=== PATIENT | female | born 1990 | race Native Hawaiian/Other Pacific Islander ===

== ENCOUNTER 2024-05-06 06:58 | Day surgery (SDC) | payer OTHER, SELFPAY ==
[2024-05-06] VITALS (16 sets, daily range): BP systolic 98–134; BP diastolic 50–105; PULSE 62–82; RESP 14–20; TEMP 36.1–36.7; O2SAT 92–100; BMI 33.5
--- OUTSIDE RECORDS SUMMARY | 2024-05-06 07:08 | XMS_ITS | Clinical Summary ---
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 09/11/2020 2:18 PM CDT [facility] INTERPRETATION/ RESULT NEGATIVE FOR INTRAEPITHELIAL LESION OR MALIGNANCY (NIL) (none) 09/11/2020 2:18 PM CDT [facility] NISM(S) Shift in karis suggestive of bacterial vaginosis 09/11/2020 2:18 PM CDT [facility] SPECIMEN ADEQUACY Satisfactory for evaluation No endocervical component seen 09/11/2020 2:18 PM CDT [facility] HPV REQUEST HPV and PAP 09/11/2020 2:18 PM CDT [facility] Last Pap Result First Pap/Unknown 2:18 PM CDT [facility] [place] Bx Done Today No 09/11/2020 2:18 PM CDT [facility] Additional Information 09/11/2020 2:18 PM CDT [facility] Comment: Interpreted at [facility] - [address], [place] [address] Automated Review Successful 09/11/2020 2:18 PM CDT [facility] Comment:Specimen processed s uccessfully by automated racecar driver device, ThinPrep Imaging System, [employer] ANCILLARY TESTING SHOE SHANKER HPV Ordered, Please see separate report 09/11/2020 2:18 PM CDT [facility] Note The pap test is a screening technique, not a diagnostic procedure. It is used primarily to screen for squamous cancers and precursor lesions. Published studies have shown that it is subject to both false negative and false positive results. The pap test should not be used as the sole means to diagnose or exclude pre-malignant and malignant lesions. 09/11/2020 2:18 PM CDT [facility] Other (Cervical) 08/29/2020 4:04 PM CDT 08/30/2020 10:01 AM CDT us Yokasta Donald NP PATHOLOGY/CYTOLOGY Final Resu lt [facility] [address] [place] [address], [place] from Last 3 Months or Most Recently Relevant to Health Maintenance Insurance [facility] [id number], [place] [id number] [address], [place] [id number] [address], [place] [id number] [address], [place] [id number] [address] [place] [address] [id number] [id number] [place] [address] [id number] [id number] [place] [phone] (Home) ATTN: NENA TALLEY [address] [id number] * Guarantor: [employer] [facility] Account Type Relation to Patient Date of Phone Billing Address [facility]ojciech Employer [address] [place] [address] [id number] [place] [id number] Advance Directives * Full Code (Latest Code Status on File) Date Activated Date Inactivated Comments 12/16/2022 7:52 PM 12/19/2022 4:14 PM Question Answer Comments Code Status Discussion: Reviewed Preferences * Full Code Date Activated Date Inactivated Comments 04/04/2021 8:06 AM 04/04/2021 12:29 PM Question Answer Comments Code Status Discussion: Discussed * Full Code Date Activated Date Inactivated Comments 09/12/2020 11:33 AM 09/12/2020 6:31 PM Question Answer Comments Code Status Discussion: Discussed Care Teams Lath Tier Relationship Specialty Start Date End Date Pcp, No . PCP - General 05/30/22 Pcp, No . 04/30/11
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
[2024-05-06 07:35] LABS: Ur HCG Qualitative* Negative (Negative)
[2024-05-06] MEDS: SODIUM CHLORIDE 0.9 % (FLUSH) 10 ML SYRINGE IVF (07:50)
[2024-05-06] MEDS: 0.9 % SODIUM CHLORIDE 500 ML 500 ML IV ×2 (07:50→10:53)
[2024-05-06] MEDS: fentaNYL 100 MCG/2 ML inj IVP (08:28)
[2024-05-06] MEDS: MIDAZOLAM HCL 1 MG/ML inj IVP (08:28)
--- NOTE | 2024-05-06 08:29 | SUR.PREOP ---
TIME?OUT:?0828 PT/RN/MDA?VERIFICATION?OF?SURGICAL?SITE-LEFT LEG,?PROCEDURE,?NERVE BLOCK, AND?CONSENT OBTAINED?PRIOR?TO?INVASIVE?PROCEDURE.
--- NOTE | 2024-05-06 08:40 | SUR.PREOP ---
Pt got anxious, lightheaded and felt faint after nerve block done by ALVARO. Pt with nausea and dry heaves, skin pale. Support given by RN's. Pt feeling better after a few minutes.
[2024-05-06] MEDS: CEFAZOLIN 2 GM INJ IVP (08:50)
--- NOTE | 2024-05-06 09:30 | W.PM.NB ---
Nerve Block Nerve Block Time Seen by Provider: 08:30 Date Seen: 05/06/24 Type of block requested by surgeon for post-operative analgesia: popliteal Side: left Time out performed: Yes Verification of patient name: Yes Verification of date of : Yes Site marking: site marked Name of person performing procedure: Cyril Continuous monitoring Was continuous monitoring of O2 sat, B/P, monitor tech, recorded every 15 minutes?: Yes Procedure Checklist: sterile prep, needles and gloves Ultrasound guided. Images saved: Yes Medications given in 5ml increments after negative aspiration: Marcaine %: 0.5 mL: 20 Patient tolerated procedure well: Yes Additional comments: Needle noted adjacent to nerve Block Charges Block Charge (with Pro Fee): Sciatic Nerve Use of Ultrasound Machine for Block: Yes- US Guidance/pain block
--- NOTE | 2024-05-06 09:31 | W.ANESCHARGE ---
Anesthesia Charges Start Date/Time Anesthesia Start Date: 05/06/24 Anesthesia Start Time: 08:39 Stop Date/Time Anesthesia Stop Date: 05/06/24 Anesthesia Stop Time: 10:45 Coding CPT Codes CPT Codes: ANESTH LOWER LEG BONE SURG - 82463 ([id number]) P2 - PATIENT W/MILD SYST DISEASE, QK - FITNESS WORKER 2-4 CNCRNT ANES PROC, QX - HEATING AND VENTILATING WORKER SVC W/ MD MED DIRECTION
--- NOTE | 2024-05-06 10:32 | W.ANESCHARGE ---
Anesthesia Charges Start Date/Time Anesthesia Start Date: 05/06/24 Anesthesia Start Time: 08:39 Stop Date/Time Anesthesia Stop Date: 05/06/24 Anesthesia Stop Time: 10:45 Coding CPT Codes CPT Codes: ANESTH LOWER LEG BONE SURG - 82950 ([id number]) P2 - PATIENT W/MILD SYST DISEASE, QK - PERSONNEL REPRESENTATIVE 2-4 CNCRNT ANES PROC, QX - DISTRIBUTION OPERATION SUPERVISOR SVC W/ MD MED DIRECTION
[2024-05-06] MEDS: BUPIVACAINE 0.25% 30 ML INJECTION (10:35)
--- NOTE | 2024-05-06 10:44 | SUR.OPER ---
BONE STIMULATOR PLACED ON THE PATIENT AND STARTED BY DR. MOISE.
[2024-05-06] MEDS: hydrOXYzine pamoate 25 MG CAPSULE PO (11:07)
--- NOTE | 2024-05-06 11:56 | SUR.PHASEII ---
Pt felt anxious and restless when first arrived to [facility] postop. Up to commode, had BM. Calming patch applied to gown, cool washcloth to forehead, reassurance given by RN. Pt feeling better now after trying to rest for a while. Continue to monitor.
--- NOTE | 2024-05-06 13:19 | W.PM.PODPROC ---
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 CT scan revealed no bony bridging and complete nonunion. She is to proceed with operative care. Reviewed the procedure, recovery, expectations potential complications. These include but are not limited to: Poor wound healing, infection, continued nonunion, hardware irritation or failure, nerve injury, deep venous thrombosis, pulmonary embolism, Complex regional pain syndrome,possible . she understands risks and a consent was obtained. Site marked. Procedure Description: patient had a preoperative popliteal block by Anesthesia. Patient brought in the operating room placed supine position on operating table. She was placed under general anesthesia. She was positioned appropriately. She was prepped and draped in a sterile fashion. Standard time-out protocol followed. Left limb was exsanguinated and the tourniquet inflated. Linear incision was made over the lateral distal fibula. Incision was carried down through skin and subcutaneous tissue. Transverse incision was made through the periosteum at the level of the nonunion. Periosteum was reflected away from the nonunion site. The nonunion was then debrided with a rongeur, dental pick, curette. the medial cartilage was soft intact. Once the nonunion fragments were multiple we gave no history of saline. The inferior and superior fracture ends were then drilled with a 2.0 mm drilled and fenestrated with a dental pick and fish-scaled with a osteotome. Jamshidi trochar was then introduced into the lateral calcaneal body. the tourniquet was released and 5 mL of bone marrow aspirate was obtained. Aspirate mixed with additional bone graft into a excellent putty. This was then applied to the nonunion site. A fibular hook plate was then applied and tamped into place. A [id number] reduction forceps was then used to advance the plate and fracture compressing the nonunion site. 3.5 mm nonlocking screw was placed in the slotted screw hole superior to the fracture. We were able to obtain a small additional amount of compression. 2.[address] in place into additional screw holes superior to the fracture. Additional 3.5 mm locking screw was placed proximally as well. One additional 2.7 mm locking screw placed inferior to the fracture line. Wound was irrigated with sterile saline. C-arm images confirmed excellent placement of the hardware. Additional bone graft placed into the fracture site. For the fascia was reapproximated with 3-0 and 4-0 Vicryl. Subcutaneous tissues reapproximated 4-0 Monocryl and skin closed with 4-0 Prolene. Sterile dressing was applied. Tourniquet was released normal capillary fill time returned all digits. She was placed in a well-padded Cam boot. She was transferred from OR to PACU vital signs stable vascular status intact. Both written and verbal postop instructions given. She will be discharged per same-day surgery protocol. She is touchdown weight-bearing with crutches. She will follow up next week. She was given given oxycodone for pain. Anesthesia: GETA and regional Hemostasis: thigh Estimated blood loss (mL): 10 Implants: Arthrex distal fibular hook plate x1. 3.5 mm cortical screw x1, 3.5 mm locking cortical screw x1, 2.7 mm locking cortical screw x3. Specimens: none sent Disposition: PACU
== END 2024-05-06 12:36 | disposition home or self-care (01) ==
PROVIDERS: Anesthesiology; Visit Provider Podiatrist
PROC: (CPT 27792; principal; 2024-05-06 08:30)
DX: S82.62XA Displaced fracture of lateral malleolus of left fibula, initial encounter for closed fracture (principal); G89.18 Other acute postprocedural pain
CPT/HCPCS: 27792; 01480; 64445; 73600; 76000; 76942; 81025; A9270; C1713; J0665; J0690; J1100; J1630; J2250; J2405; J2704; J3010; J7030; Q4125